=== PATIENT | female | born 1995 | race African-American/Black ===

== ENCOUNTER 2018-06-30 18:29 | Emergency (ER) | payer OTHER ==
[~2018-06-30] VITALS: Ht 167.6 cm; Wt 90.7 kg
[2018-06-30 18:43] VITALS: BP 133/90
[2018-06-30] MEDS ORDERED: PAXIL20 MG PO (19:10)
[2018-06-30] MEDS ORDERED: TESSALON PERLE100 MG PO (19:24)
[2018-06-30] MEDS ORDERED: FLONASE 0.05%50 MCG NASAL (19:24)
== END 2018-06-30 19:28 | disposition home or self-care (01) ==
LOC: ER 18:29
DX: J06.9 Acute upper respiratory infection, unspecified (principal); F41.9 Anxiety disorder, unspecified; F17.210 Nicotine dependence, cigarettes, uncomplicated; Z91.013 Allergy to seafood

== ENCOUNTER 2018-11-08 23:40 | Emergency (ER) | payer OTHER ==
[~2018-11-08] VITALS: Ht 167.6 cm; Wt 97.1 kg
[~2018-11-08 23:40] MED LIST: FLONASE 0.05%50 MCG NASAL; PAXIL20 MG PO; TESSALON PERLE100 MG PO
[2018-11-08] MEDS ORDERED: TRAZODONE HCL50 MG PO (23:52)
[2018-11-09 00:46] LABS: URINE BILIRUBIN NEGATIVE (Negative); URINE BLOOD NEGATIVE (Negative); URINE CLARITY CLEAR; URINE COLOR YELLOW; URINE GLUCOSE-RANDOM* NEGATIVE (Negative); URINE KETONES NEGATIVE (Negative); URINE LEUKOCYTES-REFLEX NEGATIVE (Negative); URINE NITRITE-REFLEX NEGATIVE (Negative); URINE PROTEIN (DIPSTICK) NEGATIVE (Negative); URINE SPECIFIC GRAVITY >= 1.030 (1.005-1.035); URINE UROBILINOGEN 0.2 E.U./dl (0.2-1.0)
[2018-11-09 01:04] LABS: ABSOLUTE NEUTROPHILS 7.3 thou/uL (1.4-8.2); BASOPHILS 0.6 % (0.0-2.0); EOSINOPHILS 4.9 % (0.0-3.0); HEMATOCRIT 41.5 % (37.0-47.0); HEMOGLOBIN 13.4 gm/dL (12.0-15.0); LYMPHOCYTES 19.6 % (24.0-44.0); MCH 21.9 pg (26.0-34.0); MCHC 32.3 g/dL (28.0-37.0); MCV 67.8 fL (80.0-100.0); MONOCYTES 6.3 % (1.0-8.0); PLATELET COUNT 314 thou/uL (150-400); POLYS 68.6 % (36.0-66.0); RBC 6.11 mil/uL (4.20-5.00); RDW 16.6 % (10.5-14.5); WBC 10.7 thou/uL (4.0-11.0)
[2018-11-09 01:08] LABS: CALCIUM 9.3 mg/dL (8.5-10.1); CREATININE 0.9 mg/dL (0.6-1.0); POTASSIUM 4.4 mmol/L (3.5-5.1)
[2018-11-09 01:14] LABS: ALBUMIN 3.8 g/dL (3.4-5.0); TOTAL BILIRUBIN 0.2 mg/dL (<0.1-1.0); TOTAL PROTEIN 8.2 g/dL (6.4-8.2)
[2018-11-09] MEDS ORDERED: ZOFRAN4 MG PO (01:55)
[2018-11-09 02:22] VITALS: BP 120/69
== END 2018-11-09 02:25 | disposition home or self-care (01) ==
LOC: ER 23:40
PROVIDERS: Student in an Organized Health Care Education/Training Program
DX: R11.2 Nausea with vomiting, unspecified (principal); F17.210 Nicotine dependence, cigarettes, uncomplicated; F41.9 Anxiety disorder, unspecified; G47.00 Insomnia, unspecified; Z91.013 Allergy to seafood

== ENCOUNTER 2021-06-14 21:40 | Emergency (ER) | payer OTHER ==
[~2021-06-14] VITALS: Ht 167.6 cm; Wt 68.0 kg
[~2021-06-14 21:40] MED LIST changes: +TRAZODONE HCL50 MG PO; +ZOFRAN4 MG PO
[2021-06-14 21:50] VITALS: BP 125/75
[2021-06-14] MEDS ORDERED: EFFEXOR XR150 MG PO (21:55)
[2021-06-14] MEDS ORDERED: HYDROXZINE PO (21:56)
== END 2021-06-14 23:15 | disposition home or self-care (01) ==
LOC: ER 21:40
PROVIDERS: Student in an Organized Health Care Education/Training Program
DX: U07.1 COVID-19 (principal); R53.83 Other fatigue; F41.9 Anxiety disorder, unspecified; F17.210 Nicotine dependence, cigarettes, uncomplicated; Z91.013 Allergy to seafood; Z91.018 Allergy to other foods; Z79.891 Long term (current) use of opiate analgesic; Z79.899 Other long term (current) drug therapy